=== PATIENT | male | born 1985 | race Caucasian/White ===

== ENCOUNTER 2022-05-20 10:33 | Inpatient (IN) | payer OTHER ==
[2022-05-20] MEDS: chlordiazePOXIDE HCL 25 MG CAPSULE PO SCH ×3 (10:45→23:00)
[2022-05-20 12:26] VITALS: BMI 22.0
[2022-05-20] MEDS ORDERED: ONDANSETRON *ODT* 4 MG TABLET SL PRN (12:35)
[2022-05-20] MEDS ORDERED: MAGNESIUM HYDROX 2400MG/30ML ORAL SUSPENSION 30 ML CUP PO PRN (12:35)
[2022-05-20] MEDS ORDERED: IBUPROFEN 600 MG TABLET (FP) PO PRN (12:35)
[2022-05-20] MEDS ORDERED: BISMUTH SUBSALICYLATE 262 MG/15 ML BTL PO PRN (12:35)
[2022-05-20] MEDS ORDERED: ACETAMINOPHEN 325 MG TABLET (FP) PO PRN ×2 (12:35)
[2022-05-20] MEDS ORDERED: NALOXONE HCL (KLOXXADO) 8 MG SPRAY NS PRN (12:35)
[2022-05-20] MEDS ORDERED: POLYETHYLENE GLYCOL (HEALTHYLAX) 3350 17 GM PACKET PO PRN (12:35)
[2022-05-20] MEDS ORDERED: DICYCLOMINE HCL 10 MG CAPSULE PO PRN (12:35)
[2022-05-20] MEDS ORDERED: LOPERAMIDE HCL 2 MG CAPSULE PO PRN (12:35)
[2022-05-20] MEDS ORDERED: BENZOCAINE/MENTHOL (CHLORASEPTIC ) LOZENGE MM PRN (12:35)
[2022-05-20] MEDS ORDERED: MAG HYDROX/AL HYDROX/SIMETH 30 ML UNIT-DOSE CUP PO PRN (12:35)
[2022-05-20] MEDS ORDERED: IBUPROFEN 400 MG TABLET (FP) PO PRN (12:35)
[2022-05-20] MEDS ORDERED: chlordiazePOXIDE HCL 25 MG CAPSULE ONE (14:09)
[2022-05-20] MEDS: chlordiazePOXIDE HCL 25 MG CAPSULE PO PRN ×2 (14:13→20:49)
[2022-05-20] MEDS: PRENATAL VITAMINS W/ FOLIC ACID TABLET (FP) PO SCH (14:27)
[2022-05-20] MEDS: cloNIDine HCL 0.1 MG TABLET PO PRN ×2 (15:03→16:58)
[2022-05-20] MEDS: hydrOXYzine PAMOATE 25 MG CAPSULE (FP) PO PRN (16:58)
[2022-05-20] MEDS: METHOCARBAMOL 500 MG TABLET PO PRN (17:53)
[2022-05-20] MEDS ORDERED: MELATONIN 5 MG TABLETS PO SCH (22:00)
[2022-05-20] MEDS: THIAMINE HCL 100 MG TABLET (FP) PO SCH (22:19)
[2022-05-20] MEDS: TETRAHYDROZOLINE HCL EYE DROPS OU SCH ×2 (22:20)
[2022-05-20] MEDS: SUVOREXANT 10 MG TABLET PO PRN (22:23)
[2022-05-21] MEDS: chlordiazePOXIDE HCL 25 MG CAPSULE PO PRN ×2 (00:59→14:46)
[2022-05-21] MEDS: hydrOXYzine PAMOATE 25 MG CAPSULE (FP) PO PRN ×2 (01:00→10:35)
[2022-05-21] MEDS: METHOCARBAMOL 500 MG TABLET PO PRN ×2 (01:01→10:35)
[2022-05-21] MEDS: chlordiazePOXIDE HCL 25 MG CAPSULE PO SCH ×4 (06:32→22:15)
[2022-05-21] MEDS: FLUoxetine HCL 20 MG CAPSULE PO SCH (10:35)
[2022-05-21] MEDS: PRENATAL VITAMINS W/ FOLIC ACID TABLET (FP) PO SCH (10:36)
[2022-05-21] MEDS: cloNIDine HCL 0.1 MG TABLET PO PRN (10:36)
[2022-05-21] MEDS: TETRAHYDROZOLINE HCL EYE DROPS OU SCH ×4 (10:36→22:14)
[2022-05-21 11:41] LABS: HEMATOCRIT 42.1 % (35.4-49); HEMOGLOBIN 14.1 GM/dL (11.7-16.9); MCHC 33.5 g/dl (32.0-35.9); MEAN CELL VOLUME 95.7 fl (80-96); MEAN PLT VOLUME 8.1 fl (7.5-11.1); PLATELET COUNT 91 10^3/uL (134-434); RBC 4.39 M/mm3 (4.00-5.60); WHITE BLOOD COUNT 3.5 K/mm3 (4.0-10.0)
[2022-05-21 12:26] LABS: ALBUMIN 3.4 g/dl (3.4-5.0)
[2022-05-21 12:31] LABS: BILIRUBIN,TOTAL 1.7 mg/dL (0.2-1); TOT PROT 6.8 g/dl (6.4-8.2)
[2022-05-21 12:41] LABS: BLOOD UREA NITROGEN 4.7 mg/dL (7-18); CALCIUM 8.9 mg/dL (8.5-10.1); CREATININE 0.9 mg/dL (0.55-1.3)
[2022-05-21] MEDS ORDERED: POTASSIUM CHLORIDE TABS 20 MEQ TABLET.ER (FP) PO ONE (12:44)
[2022-05-21] MEDS: SUVOREXANT 10 MG TABLET PO PRN (22:14)
[2022-05-21] MEDS: THIAMINE HCL 100 MG TABLET (FP) PO SCH (22:14)
[2022-05-22] MEDS: chlordiazePOXIDE HCL 25 MG CAPSULE PO SCH ×4 (05:38→22:13)
[2022-05-22] MEDS: hydrOXYzine PAMOATE 25 MG CAPSULE (FP) PO PRN ×2 (10:08→22:14)
[2022-05-22] MEDS: PRENATAL VITAMINS W/ FOLIC ACID TABLET (FP) PO SCH (10:08)
[2022-05-22] MEDS: FLUoxetine HCL 20 MG CAPSULE PO SCH (10:08)
[2022-05-22] MEDS: cloNIDine HCL 0.1 MG TABLET PO PRN (10:08)
[2022-05-22] MEDS: TETRAHYDROZOLINE HCL EYE DROPS OU SCH ×4 (10:09→22:14)
[2022-05-22] MEDS: LACTULOSE 20 GM/30 ML UDC (FOR ORAL USE ONLY) PO SCH ×4 (10:10→22:14)
[2022-05-22] MEDS: METHOCARBAMOL 500 MG TABLET PO PRN (10:13)
[2022-05-22] MEDS: chlordiazePOXIDE HCL 25 MG CAPSULE PO PRN (13:40)
[2022-05-22] MEDS: THIAMINE HCL 100 MG TABLET (FP) PO SCH (22:13)
[2022-05-22] MEDS: SUVOREXANT 10 MG TABLET PO PRN (22:14)
[2022-05-23] MEDS ORDERED: chlordiazePOXIDE HCL 10 MG CAPSULE PO PRN
[2022-05-23] MEDS: chlordiazePOXIDE HCL 10 MG CAPSULE PO SCH ×4 (05:54→22:13)
[2022-05-23] MEDS: LACTULOSE 20 GM/30 ML UDC (FOR ORAL USE ONLY) PO SCH ×4 (10:07→22:15)
[2022-05-23] MEDS: FLUoxetine HCL 20 MG CAPSULE PO SCH (10:07)
[2022-05-23] MEDS: PRENATAL VITAMINS W/ FOLIC ACID TABLET (FP) PO SCH (10:07)
[2022-05-23] MEDS: METHOCARBAMOL 500 MG TABLET PO PRN ×2 (10:07→22:13)
[2022-05-23] MEDS: TETRAHYDROZOLINE HCL EYE DROPS OU SCH ×4 (10:08→22:15)
[2022-05-23] MEDS: hydrOXYzine PAMOATE 25 MG CAPSULE (FP) PO PRN (17:21)
[2022-05-23] MEDS: cloNIDine HCL 0.1 MG TABLET PO PRN (17:21)
[2022-05-23] MEDS: THIAMINE HCL 100 MG TABLET (FP) PO SCH (22:13)
[2022-05-23] MEDS: traZODone HCL 50 MG TABLET (FP) PO SCH (22:14)
[2022-05-24] MEDS: chlordiazePOXIDE HCL 10 MG CAPSULE PO SCH ×2 (05:30→16:42)
[2022-05-24] MEDS: PRENATAL VITAMINS W/ FOLIC ACID TABLET (FP) PO SCH (10:15)
[2022-05-24] MEDS: LACTULOSE 20 GM/30 ML UDC (FOR ORAL USE ONLY) PO SCH ×4 (10:15→22:05)
[2022-05-24] MEDS: FLUoxetine HCL 20 MG CAPSULE PO SCH (10:15)
[2022-05-24] MEDS: TETRAHYDROZOLINE HCL EYE DROPS OU SCH ×4 (10:16→22:06)
[2022-05-24] MEDS: METHOCARBAMOL 500 MG TABLET PO PRN ×2 (10:18→22:08)
[2022-05-24] MEDS: THIAMINE HCL 100 MG TABLET (FP) PO SCH (22:05)
[2022-05-24] MEDS: traZODone HCL 50 MG TABLET (FP) PO SCH (22:05)
[2022-05-24] MEDS: hydrOXYzine PAMOATE 25 MG CAPSULE (FP) PO PRN (22:08)
[2022-05-25] MEDS ORDERED: chlordiazePOXIDE HCL 10 MG CAPSULE PO ONE (05:00)
[2022-05-25] MEDS: METHOCARBAMOL 500 MG TABLET PO PRN (05:48)
[2022-05-25 09:25] VITALS: BP 125/80; PULSE 80; RESP 18; TEMP 97.1
[2022-05-25] MEDS: TETRAHYDROZOLINE HCL EYE DROPS OU SCH (09:38)
[2022-05-25] MEDS: PRENATAL VITAMINS W/ FOLIC ACID TABLET (FP) PO SCH (09:38)
[2022-05-25] MEDS: FLUoxetine HCL 20 MG CAPSULE PO SCH (09:38)
[2022-05-25] MEDS: LACTULOSE 20 GM/30 ML UDC (FOR ORAL USE ONLY) PO SCH (09:38)
== END 2022-05-25 10:00 | disposition home or self-care (01) | DRG 775 ==
LOC: YASAS 10:33 → Y6N 13:45
PROVIDERS: ADMIT Allergy & Immunology; ATTEND Surgery
PROC: HZ2ZZZZ Detoxification Services for Substance Abuse Treatment (ICD-10-PCS; principal; 2022-05-20)
DX: F10.230 Alcohol dependence with withdrawal, uncomplicated (principal); F10.282 Alcohol dependence with alcohol-induced sleep disorder; F41.9 Anxiety disorder, unspecified; R00.0 Tachycardia, unspecified; Z28.310 Unvaccinated for COVID-19; Z56.0 Unemployment, unspecified
CPT/HCPCS: 36415; 80053; 82140; 84132; 85027; 86593; 86780; 87811; 93005; 93010; C9803-CS; U0003; U0005